=== PATIENT | female | born 1980 | race Caucasian/White ===

== ENCOUNTER 2020-08-31 13:58 | Emergency (ER) | payer SELFPAY ==
[2020-08-31] VITALS (7 sets, daily range): BP systolic 102–130; BP diastolic 75–82; PULSE 64–83; RESP 16–18; TEMP 37.1; O2SAT 96–98; BMI 26.0
--- NOTE | 2020-08-31 14:31 | ECG_ITS ---
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 Measurements Intervals [place] Rate: 77 P: 39 MO: 173 QRS: 44 QRSD: 85 T: 23 QT: 366 QTc: 416 Interpretive Statements SINUS RHYTHM WITH OCCASIONAL VENTRICULAR PREMATURE COMPLEXES No previous ECG available for comparison Electronically Signed On 08-31-2020 17:57:47 FLOOR WINDER by Rinku Hoff M.D. [id number]
--- NOTE | 2020-08-31 14:31 | XR_ITS ---
WS: [id number] Portable AP upright chest, 08/31/2020 Clinical Data: sob Comparison: None. Findings: No nodules, masses or effusions are seen. The heart is normal. The pulmonary vascularity is not increased. No pneumonia or pneumothorax is seen. Monitor leads are on the chest wall. XR/XR chest 1V portable [id number] Impression: Negative chest.
--- NOTE | 2020-08-31 14:32 | ED_ITS ---
HPI - SOB/Dyspnea General: Chief Complaint: Shortness of Breath/Dyspnea Stated Complaint: DIFF BREATHING X 5 DAYS Time Seen by Provider: 08/31/20 14:10 History of Present Illness: HPI Narrative: Patient is a 40-year-old female comes to the ED with shortness of breath, sinus pain and congestion over the past 5 days. Denies any chest pain but does describe some shortness of breath and chest tightness especially when she gets up and moves around. She endorses having a mild cough that is due to sinus and nasal drainage. Associated symptoms: Deny abdominal pain, chest pain, fever(s), nausea, ort hopnea, palpitations or vomiting Review of Systems Const: Denies: fever(s), chills or fatigue Eyes: Denies: change in vision or eye discomfort ENMT: Reports: nasal discharge, nasal congestion and sinus pain (frontal sinus pain); Denies: throat pain or odynophagia Card: Denies: chest pain, palpitations, edema, swelling of feet/ankles, dyspnea on exertion or orthopnea Resp: Reports: dyspnea; Denies: productive cough or non-productive cough GI: Denies: abdominal pain, nausea, vomiting, diarrhea, constipation or hematochezia : Denies: flank pain, dysuria or hematuria Musc: Denies: neck pain, back pain or extremity swelling Skin/Breast: Denies: rash or new lesions Neuro: Denies: headache(s), numbness in extremities or weakness in extremities Physical Exam Const: COMMON NORMALS: no acute distress, patient oriented x3 and alert HENMT: COMMON NORMALS: normocephalic HEAD & SCALP: normocephalic FACE & SINUS: sinus tenderness frontal (bilateral) and maxillary (bilateral) MOUTH: Normal oral and palatal mucosa present THROAT: posterior oropharynx normal and uvula midline Eye: COMMON NORMALS: Equal, round and reactive pupils present PUPIL: Yes Equal, round and reactive pupils present Neck/C-Spine: COMMON NORMALS: supple GENERAL: Yes normal visual inspection Resp: COMMON NORMALS: normal respiratory effort, No retractions, No use of accessory muscles and clear to auscultation bilaterally EFFORT & INSPECTION: Yes able to speak in complete sentences, No tachypneic, No respiratory distress and No labored AUSCULTATION: clear to auscultation bilaterally Cardio: COMMON NORMALS: regular rate, regular rhythm, S1 normal heart sound present, S2 normal heart sound present, No gallops present (Cardio), No clicks present (Cardio), No murmurs present (Cardio) and Peripheral pulses 2+ throughout RATE: regular rate RHYTHM: regular rhythm HEART SOUNDS: S1 normal heart sound present and S2 normal heart sound present PERIPHERAL PU LSES: Peripheral pulses 2+ throughout GI: COMMON NORMALS: Normal to inspection, nondistended, normoactive bowel sounds present, Soft to palpation, non-tender and no masses PALPATION: Yes Soft to palpation : COMMON NORMALS: Yes no CVA tenderness BLADDER/KIDNEY EXAM: Yes no CVA tenderness Back/Pelvis: COMMON NORMALS: no CVA tenderness Extremity: COMMON NORMALS: normal to inspection and no pedal edema Neuro: COMMON NORMALS: patient oriented x3 and moves all extremities SENSORIUM/ORIENTATION: Yes alert Skin: GENERAL SKIN EXAM: dry skin Course Vital Signs: Vital signs: Vital Signs Temperature 98.7 F 08/31/20 16:34 Pulse Rate 79 08/31/20 16:34 Respiratory Rate 18 08/31/20 16:34 Blood Pressure 102/75 08/31/20 16:34 Pulse Oximetry 96 08/31/20 16:34 MDM - SOB/Dyspnea MDM Narrative: Medical decision making narrative: Patient is a 40-year-old female comes to the ED with sinus pain and shortness of breath. Symptoms started about 5 days ago. Physical exam shows some frontal and maxillary sinus tenderness. Lungs were clear to auscultation bilaterally. CBC and CMP were unremarkable. D-dimer 0.49 which is in normal range. hCG negative troponin negative and EKG showed normal sinus rhythm with no ST segment elevation or depression seen. Chest x-ray showed no acute findings. Patient was given a DuoNeb breathing treatment in the ED. She was also given a dose of Solu-Medrol while here in the ED as well. Patient was diagnosed with sinusitis and discharged with a prescription for Augmentin and Medrol Dosepak. Patient was told to follow-up with PCP in 7 to 10 days for reevaluation. Return to ED precautions given. Patient understood and agreed with plan. Lab Data: Attestation: I reviewed the patient's lab results. Labs: Lab Results 08/31/20 08/31/20 08/31/20 Range/Units 14:35 14:35 14:35 WBC 6.3 (4.0-10.0) 10^3/ uL RBC 4.11 (4.1-5.3) 10^6/u L Hgb 12.4 (11.5-15.3) g/dL Hct 37.4 (37.0-47.0) % MCV 91.0 (81-99) fL MCH 30.2 (28.0-34.0) pg MCHC 33.2 (30.0-36.0) g/dL RDW 13.0 (12.1-15.1) % Plt Count 325 (130-400) 10^3/c mm MPV 10.0 (7.4-10.4) fL Neut % (Auto) 51.0 % Lymph % (Auto) 41.6 % Payne % (Auto) 5.3 % Eos % (Auto) 1.6 % Baso % (Auto) 0.3 % Neut # (Auto) 3.20 (1.8-7.7) 10^3/u L Lymph # (Auto) 2.6 (0.8-4.8) 10^3/u L [place] # (Auto) 0.3 (0.2-0.9) 10^3/u L Eos # (Auto) 0.1 (0.0-0.8) 10^3/u L Baso # (Auto) 0.0 (0.0-0.1) 10^3/u L Nucleated RBC % (a uto) 0 % Nucleated RBCs # 0.0 /100WBC D-Dimer 0.49 (0-0.59) ug/mIFE U Sodium 138 (136-145) mmol/L Potassium 3.9 (3.5-5.1) mmol/L Chloride 104 (98-107) mmol/L Carbon Dioxide 23 (22-29) mmol/L Anion Gap 14.9 (5-19) BUN 15 (6-20) mg/dL Creatinine 0.4 L (0.5-0.9) mg/dL GFR Calculation 178.6 H (90-130) mL/min Glucose 115 (65-115) mg/dL Calculated Osmolal ity 288 (285-295) mOsm/k g Calcium 9.0 (8.5-10.5) mg/dL Total Bilirubin 0.2 (0.15-1.2) mg/dL AST 28 (0-32) U/L ALT 53 H (0-33) U/L Alkaline Phosphata se 89 (35-105) IU/L Troponin T Baselin e (0-10) ng/L Total Protein 6.8 (6.6-8.7) g/dL Albumin 4.1 (3.5-5.2) g/dL Globulin 2.7 (1.3-4.6) g/dL HCG, Qual (Negative) 08/31/20 08/31/20 Range/Units 14:35 14:35 WBC (4.0-10.0) 10^3/ uL RBC (4.1-5.3) 10^6/u L Hgb (11.5-15.3) g/dL Hct (37.0-47.0) % MCV (81-99) fL MCH (28.0-34.0) pg MCHC (30.0-36.0) g/dL RDW (12.1-15.1) % Plt Count (130-400) 10^3/c mm MPV (7.4-10.4) fL Neut % (Auto) % Lymph % (Auto) % [place] % (Auto) % Eos % (Auto) % Baso % (Auto) % Neut # (Auto) (1.8-7.7) 10^3/u L Lymph # (Auto) (0.8-4.8) 10^3/u L [place] # (Auto) (0.2-0.9) 10^3/u L Eos # (Auto) (0.0-0.8) 10^3/u L Baso # (Auto) (0.0-0.1) 10^3/u L Nucleated RBC % (a uto) % Nucleated RBCs # /100WBC D-Dimer (0-0.59) ug/mIFE U Sodium (136-145) mmol/L Potassium (3.5-5.1) mmol/L Chloride (98-107) mmol/L Carbon Dioxide (22-29) mmol/L Anion Gap (5-19) BUN (6-20) mg/dL Creatinine (0.5-0.9) mg/dL GFR Calculation (90-130) mL/min Glucose (65-115) mg/dL Calculated Osmolal ity (285-295) mOsm/k g Calcium (8.5-10.5) mg/dL Total Bilirubin (0.15-1.2) mg/dL AST (0-32) U/L ALT (0-33) U/L Alkaline Phosphata se (35-105) IU/L Troponin T Baselin e 6 (0-10) ng/L Total Protein (6.6-8.7) g/dL Albumin (3.5-5.2) g/dL Globulin (1.3-4.6) g/dL HCG, Qual Negative (Negative) Imaging Data^: CXR: Attestation: I personally reviewed and interpreted this imaging study as follows: Radiologist's impression: [employer] [address] XRay Report Signed Patient: Francie Pacheco Unit #: [id number] : 1980 Age/Sex: 40 / F ADM Date: 08/31/20 Loc: ER Room/Bed: Attending Dr: Ordering Provider/Ordering MD: Erwin Fishman Date of Service: 08/31/20 Procedure(s): XR chest 1V portable [id number] Accession Number(s): [id number] Report Number: [id number] WS: [id number] Portable AP upright chest, 08/31/2020 Clinical Data: sob Comparison: None. Findings: No nodules, masses or effusions are seen. The heart is normal. The pulmonary vascularity is not increased. No pneumonia or pneumothorax is seen. Monitor leads are on the chest wall. XR/XR chest 1V portable [id number] Impression: Negative chest. Dictated By: Luh Ramirez MD Signed By: Luh Ramirez MD Signed Date/Time: 08/31/201440 DD/ 40 EKG Data^: EKG 1: Attestation: I personally reviewed and interpreted this EKG as follows: EKG Interpretation Date: 08/31/20 Interpretation: Normal sinus rhythm, 77 bpm, no ST segment elevation or depression seen. Discharge Plan Discharge Patient Disposition: Home Clinical Impression: Sinusitis Qualifiers: Sinusitis location: frontal Chronicity: acute Recurrence: non-recurrent Qualified Code(s): J01.10 - Acute frontal sinusitis, unspecified Condition: Stable Prescriptions: New Augmentin 500-125 mg tablet 1 tab PO BID 7 Days Qty: 14 RF: 0 Medrol (Hola) 4 mg tablets,dose pack See Rx Instructions .ROUTE .COMPLEX Qty: 21 RF: 0 No Action No Known Home Medications RF: 0 Discharge Orders: Discharge ED (Routine); Ordered 08/31/20 Ordered By: Erwin Fishman Referrals: Amarjit Price MD [Primary Care Provider] - Discharge Diet: Regular Discharge Activity: Increase activity as tolerated Patient Instructions: Sinusitis (ED) Activity Restrictions/Additional Instructions: Follow-up with medical provider as directed in 7 to 10 days for reevaluation. Take medications as prescribed. Return to the ER or your medical provider if condition worsens. Please read and understand discharge instructions. If any questions, please ask. Coding Level of Care Code ED Retail Selling Floor Leader for Freida Fwmarycarmen Exam Comprehensive
[2020-08-31 14:45] LABS: Basophils % 0.3 %; Eosinophils # 0.1 10^3/uL (0.0-0.8); Eosinophils % 1.6 %; Hematocrit 37.4 % (37.0-47.0); Hemoglobin 12.4 g/dL (11.5-15.3); Lymphocytes # 2.6 10^3/uL (0.8-4.8); Lymphocytes % 41.6 %; Mean Corpuscular HGB Conc 33.2 g/dL (30.0-36.0); Mean Corpuscular Hemoglobin 30.2 pg (28.0-34.0); Monocytes # 0.3 10^3/uL (0.2-0.9); Monocytes % 5.3 %; Nucleated Red Blood Cells % 0 %; Platelet Count 325 10^3/cmm (130-400); Red Blood Count 4.11 10^6/uL (4.1-5.3); White Blood Count 6.3 10^3/uL (4.0-10.0)
[2020-08-31 15:05] LABS: D Dimer 0.49 ug/mIFEU (0-0.59)
[2020-08-31 15:35] LABS: Troponin(5th) Baseline 6 ng/L (0-10)
[2020-08-31 15:36] LABS: Alanine Aminotransferase 53 U/L (0-33); Albumin Level 4.1 g/dL (3.5-5.2); Alkaline Phosphatase 89 IU/L (35-105); Anion Gap 14.9 (5-19); Aspartate Amino Transferase 28 U/L (0-32); Blood Urea Nitrogen 15 mg/dL (6-20); Carbon Dioxide 23 mmol/L (22-29); Chloride 104 mmol/L (98-107); Globulin 2.7 g/dL (1.3-4.6); Glomerular Filtration Rate 178.6 mL/min (90-130); Glucose 115 mg/dL (65-115); Osmolality Calculated 288 mOsm/kg (285-295); Potassium 3.9 mmol/L (3.5-5.1); Sodium 138 mmol/L (136-145); Total Bilirubin 0.2 mg/dL (0.15-1.2); Total Protein 6.8 g/dL (6.6-8.7)
[2020-08-31] MEDS: sodium chloride 0.9% 500 ML 999 ML IV (15:44)
[2020-08-31] MEDS: ipratropium-albuterol 3 mL Neb INHALATION (15:53)
--- NOTE | 2020-08-31 16:26 | PC.NURSE ---
EKG done at 1626 and shown to ER doctor
--- NOTE | 2020-08-31 16:31 | ECG_ITS ---
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 Measurements Intervals [place] Rate: 68 P: 50 [place]: 183 QRS: 41 QRSD: 90 T: 44 QT: 388 QTc: 414 Interpretive Statements SINUS RHYTHM WITH OCCASIONAL VENTRICULAR PREMATURE COMPLEXES Compared to ECG 08/31/2020 14:15:40 No significant changes Electronically Signed On 08-31-2020 18:12:15 DAYCARE WORKER by Rinku Hoff M.D. [id number]
[2020-08-31 20:52] LABS: HCG, Serum Qual Negative (Negative)
== END 2020-08-31 16:38 | disposition home or self-care (01) ==
PROVIDERS: Emergency Provider Physician Assistant; PCP Family Medicine
DX: J01.10 Acute frontal sinusitis, unspecified (principal)
CPT/HCPCS: 12345; 71045; 80053; 84484; 84703; 85025; 85378; 93005; 94640; 96374; 99283; J2930; J7040

== ENCOUNTER 2024-06-27 11:48 | Emergency (ER) | payer SELFPAY ==
[2024-06-27 12:12] VITALS: BP 127/74; PULSE 82; RESP 17; TEMP 36.7; O2SAT 99
--- NOTE | 2024-06-27 13:41 | CTR_ITS ---
PROCEDURE INFORMATION: Exam: CT Abdomen And Pelvis Without Contrast Exam date and time: 06/27/2024 2:28 PM Age: 44 years old Clinical indication: Abdominal pain; Generalized; Additional info: Flank pain TECHNIQUE: Imaging protocol: Computed tomography of the abdomen and pelvis without contrast. Radiation optimization: All CT scans at this facility use at least one of these dose optimization techniques: automated exposure control; mA and/or kV adjustment per patient size (includes targeted exams where dose is matched to clinical indication); or iterative reconstruction. COMPARISON: CR XR chest 1V portable [id number] 08/31/2020 2:32 PM RADIATION DOSE METRICS: Total DLP (mGy-cm): 333.36 FINDINGS: Lungs: Minimal right basilar atelectasis. Liver: Normal. No mass. Gallbladder and biliary ducts: The gallbladder is unremarkable. Pancreas: Normal. No ductal dilation. Spleen: Subcentimeter calcifications in the spleen likely representing granulomas. Subcentimeter splenule visualized in the left upper quadrant. Adrenal glands: Normal. No mass. Kidneys and ureters: No evidence of hydronephrosis or nephrolithiasis bilaterally. No obstructing ureteral calculus. The urinary bladder is unremarkable. Stomach and bowel: There is moderate gastric wall thickening with scattered small bowel loops displaying minimal wall thickening such as seen on series 3, image 82. No evidence of diverticulosis or acute diverticulitis. Appendix: The appendix is not definitively identified. No secondary signs to suggest acute appendicitis. Intraperitoneal space: No intraperitoneal free air or fluid. Vasculature: Mild aortoiliac atherosclerosis. Lymph nodes: Unremarkable. No enlarged lymph nodes. Urinary bladder: See Kidneys and ureters finding. Reproductive: Status post hysterectomy. Bones/joints: Unremarkable. No acute fracture. Soft tissues: Small fat containing umbilical hernia. CT/CT kidney stone [id number] IMPRESSION: 1. Findings suggesting mild gastroenteritis. 2. No evidence of nephrolithiasis or hydronephrosis. No obstructing ureteral calculus. 3. No evidence of acute appendicitis or acute diverticulitis.
[2024-06-27 13:42] LABS: Basophils % 0.4 %; Eosinophils # 0.2 10^3/uL (0.0-0.8); Eosinophils % 2.2 %; Hematocrit 39.8 % (36-47); Lymphocytes # 2.8 10^3/uL (0.8-4.8); Lymphocytes % 34.6 %; Mean Corpuscular HGB Conc 33.2 g/dL (30-55); Mean Corpuscular Hemoglobin 30.6 pg (27-33); Mean Corpuscular Volume 92.3 fl (85-98); Mean Platelet Volume 9.1 fL (7.4-10.4); Monocytes # 0.5 10^3/uL (0.2-0.9); Monocytes % 5.8 %; Neutrophils # 4.62 10^3/uL (1.8-7.7); Neutrophils % 56.8 %; Nucleated Red Blood Cells % 0 %; Platelet Count 357 10^3/cmm (157-399); Red Blood Count 4.31 10^6/uL (3.85-5.65); Red Cell Distribution Width 13.2 % (12.1-15.1); White Blood Count 8.14 10^3/uL (3.29-11.43)
--- NOTE | 2024-06-27 13:47 | ED_ITS ---
HPI - Female Genitourinary 2 General: Chief complaint: Urogenital-Female Stated complaint: severe pain back pain Time Seen by Provider: 06/27/24 13:35 Source: patient Mode of arrival: ambulatory Limitations: no limitations History of Present Illness: 44-year-old female states been having bi lateral flank and low back pain for the last 5 days states pains been sharp in nature worse with movement and palpation has had some difficulty urinating she denies any fevers denies any diarrhea denies any vomiting. Associated symptoms: Reports nausea; Deny abdominal pain or headache(s) Related Data Previous Rx's Medication Instructions Recorded hydrocodone 5 mg-acetaminophen 325 1 tab PO Q6H PRN pain #14 tabs 06/27/24 mg tablet methocarbamol 750 mg tablet 750 mg PO Q6H PRN spasms #20 tabs 06/27/24 naproxen 500 mg tablet (Naprosyn) 500 mg PO BID PRN pain #20 tabs 06/27/24 Allergies Allergy/AdvReac Type Severity Reaction Status Date / Time No Known Allergies Allergy Verified 08/31/20 14:14 Review of Systems 2 Const: Denies: fever(s), chills, body aches or change in appetite ENMT: Denies: throat pain or dental pain Card: Denies: chest pain Resp: Denies: dyspnea GI: Reports: nausea; Denies: abdominal pain, vomiting or diarrhea : Reports: flank pain and difficulty voiding Musc: Reports: back pain; Denies: neck pain Skin/Breast: Denies: rash Neuro: Denies: headache(s) Physical Exam 2 Const: COMMON NORMALS: no acute distress, patient oriented x3 and healthy appearing HENMT: COMMON NORMALS: normocephalic and atraumatic HEAD & SCALP: n ormocephalic and atraumatic Eye: COMMON NORMALS: conjunctivae normal CONJUNCTIVA: Yes conjunctivae normal Neck/C-Spine: COMMON NORMALS: full ROM and supple Chest: COMMONS NORMALS: normal inspection of the chest Resp: COMMON NORMALS: normal respiratory effort Cardio: COMMON NORMALS: regular rate, regular rhythm and No murmurs present (Cardio) RATE: regular rate RHYTHM: regular rhythm GI: COMMON NORMALS: Normal to inspection, nondistended, normoactive bowel sounds present, Soft to palpation, non-tender and no masses PALPATION: Yes Soft to palpation Back/Pelvis: OTHER: Bilateral low back tenderness Extremity: COMMON NORMALS: normal to inspection and full ROM Neuro: COMMON NORMALS: patient oriented x3, moves all extremities and no focal motor deficits Psych: COMMON NORMALS: mental status grossly normal, Normal thought process present and cooperative THOUGHT PROCESS: Normal thought process present Skin: COMMON NORMALS: no rashes or lesions noted and no wounds GENERAL SKIN EXAM: no rashes or lesions noted Course 2 Vital Signs: Vital signs: Vital Signs Temperature 98.1 F 06/27/24 12:12 Pulse Rate 73 06/27/24 16:02 Respiratory Rate 18 06/27/24 14:20 Blood Pressure 111/82 06/27/24 16:02 Pulse Oximetry 99 06/27/24 16:02 Oxygen Delivery Me thod Room Air 06/27/24 16:02 MDM - Female Medical Decision Making Patient presents with back pain is likely muscular in nature CT blood work urinalysis here are all normal pain has improved she has no signs of epidural abscess or cauda equina we will place her on pain meds she is follow-up with PCP return if worsening she understands agrees to plan. Medical Records I reviewed the patient's medical records. Lab Data I reviewed the patient's lab results. 06/27/24 13:30 06/27/24 13:30 Radiology Impressions Abdomen/Pelvis CT 06/27/24 13:41 IMPRESSION: 1. Findings suggesting mild gastroenteritis. 2. No evidence of nephrolithiasis or hydronephrosis. No obstructing ureteral calculus. 3. No evidence of acute appendicitis or acute diverticulitis. Laboratory Results WBC 8.14 10^3/uL (3.29-11.43) 06/27/24 13:30 RBC 4.31 10^6/uL (3.85-5.65) 06/27/24 13:30 Hgb 13.20 g/dL (11.27-16.99) 06/27/24 13:30 Hct 39.8 % (36-47) 06/27/24 13:30 MCV 92.3 fl (85-98) 06/27/24 13:30 MCH 30.6 pg (27-33) 06/27/24 13:30 MCHC 33.2 g/dL (30-55) 06/27/24 13:30 RDW 13.2 % (12.1-15.1) 06/27/24 13:30 Plt Count 357 10^3/cmm (157-399) 06/27/24 13:30 MPV 9.1 fL (7.4-10.4) 06/27/24 13:30 Neut % (Auto) 56.8 % 06/27/24 13:30 Lymph % (Auto) 34.6 % 06/27/24 13:30 [place] % (Auto) 5.8 % 06/27/24 13:30 Eos % (Auto) 2.2 % 06/27/24 13:30 Baso % (Auto) 0.4 % 06/27/24 13:30 Neut # (Auto) 4.62 10^3/uL (1.8-7.7) 06/27/24 13:30 Lymph # (Auto) 2.8 10^3/uL (0.8-4.8) 06/27/24 13:30 [place] # (Auto) 0.5 10^3/uL (0.2-0.9) 06/27/24 13:30 Eos # (Auto) 0.2 10^3/uL (0.0-0.8) 06/27/24 13:30 Baso # (Auto) 0.0 10^3/uL (0.0-0.1) 06/27/24 13:30 Nucleated RBC % (auto) 0 % 06/27/24 13:30 Nucleated RBCs # 0.0 /100WBC 06/27/24 13:30 Sodium 140 mmol/L (136-145) 06/27/24 13:30 Potassium 4.1 mmol/L (3.5-5.1) 06/27/24 13:30 Chloride 105 mmol/L (98-107) 06/27/24 13:30 Carbon Dioxide 25 mmol/L (22-29) 06/27/24 13:30 Anion Gap 14.1 (5-19) 06/27/24 13:30 BUN 11 mg/dL (6-20) 06/27/24 13:30 Creatinine 0.5 mg/dL (0.5-0.9) 06/27/24 13:30 GFR Calculation 135.3 mL/min (90-130) H 06/27/24 13:30 Glucose 76 mg/dL (65-115) 06/27/24 13:30 Calculated Osmolality 288 mOsm/kg (285-295) 06/27/24 13:30 Calcium 9.3 mg/dL (8.5-10.5) 06/27/24 13:30 Total Bilirubin 0.2 mg/dL (0.15-1.2) 06/27/24 13:30 AST 19 U/L (0-32) 06/27/24 13:30 ALT 22 U/L (0-33) 06/27/24 13:30 Alkaline Phosphatase 78 U/L (35-105) 06/27/24 13:30 Total Protein 7.1 g/dL (6.6-8.7) 06/27/24 13:30 Albumin 4.4 g/dL (3.5-5.2) 06/27/24 13:30 Globulin 2.7 g/dL (1.3-4.6) 06/27/24 13:30 Lipase 23 U/L (13-60) 06/27/24 13:30 Urine Color Yellow (Yellow) 06/27/24 14:16 Urine Appearance Clear (CLEAR) 06/27/24 14:16 Urine pH 5.5 (5-7) 06/27/24 14:16 Ur Specific [place] 1.006 (1.005-1.030) 06/27/24 14:16 Urine Protein Negative (Negative) 06/27/24 14:16 Urine Glucose (UA) Negative (Normal) 06/27/24 14:16 Urine Ketones Negative (Negative) 06/27/24 14:16 Urine Blood Negative (Negative) 06/27/24 14:16 Urine Nitrate Negative (Negative) 06/27/24 14:16 Urine Bilirubin Negative (Negative) 06/27/24 14:16 Urine Urobilinogen 0.2 mg/dL (Negative) 06/27/24 14:16 Ur Leukocyte Esterase Negative (Negative) 06/27/24 14:16 Urine RBC 0-2 /hpf (0-2) 06/27/24 14:16 Urine WBC 0-5 /hpf (0-5) 06/27/24 14:16 Ur Squamous Epith Cells 0-5 /hpf (0-5) 06/27/24 14:16 Amorphous Sediment Not Reportable 06/27/24 14:16 Urine Bacteria None seen /hpf (NONE) 06/27/24 14:16 Hyaline Casts 0-4 /lpf H 06/27/24 14:16 All radiology interpretation(s) finalized by discharge Discharge Plan Discharge Patient Disposition: Home Clinical Impression: Low back pain Condition: Stable Prescriptions: New hydrocodone-acetaminophen 5-325 mg tablet 1 tab PO Q6H PRN (Reason: pain) Qty: 14 0RF methocarbamol 750 mg tablet 750 mg PO Q6H PRN (Reason: spasms) Qty: 20 0RF naproxen [Naprosyn] 500 mg tablet 500 mg PO BID PRN (Reason: pain) Qty: 20 0RF Discharge Orders: Discharge ED (Routine); Ordered 06/27/24 Ordered By: Osvaldo Arauz Referrals: Amarjit Price MD [Primary Care Provider] - Discharge Diet: Advance as tolerated Discharge Activity: Resume usual activity Patient Instructions: Back Pain (ED) Coding Level of Care Code ED Associate Professor Of Theology for Freida Kaplan
[2024-06-27 14:05] LABS: Alanine Aminotransferase 22 U/L (0-33); Albumin Level 4.4 g/dL (3.5-5.2); Alkaline Phosphatase 78 U/L (35-105); Anion Gap 14.1 (5-19); Aspartate Amino Transferase 19 U/L (0-32); Blood Urea Nitrogen 11 mg/dL (6-20); Calcium 9.3 mg/dL (8.5-10.5); Carbon Dioxide 25 mmol/L (22-29); Chloride 105 mmol/L (98-107); Globulin 2.7 g/dL (1.3-4.6); Glomerular Filtration Rate 135.3 mL/min (90-130); Glucose 76 mg/dL (65-115); Lipase 23 U/L (13-60); Osmolality Calculated 288 mOsm/kg (285-295); Potassium 4.1 mmol/L (3.5-5.1); Sodium 140 mmol/L (136-145); Total Bilirubin 0.2 mg/dL (0.15-1.2); Total Protein 7.1 g/dL (6.6-8.7)
[2024-06-27 14:20] VITALS: RESP 18
[2024-06-27] MEDS: ondansetron 2 mg/ML SDV 2 mL 4 MG IVP (14:20)
[2024-06-27] MEDS: HYDROmorphone 1 mg/mL INJ 1 mL IVP (14:20)
[2024-06-27 14:26] LABS: Bilirubin Urine Negative (Negative); Blood Urine Negative (Negative); Glucose Urine UA Negative (Normal); Ketones Urine Negative (Negative); Leukocyte Esterase Urine Negative (Negative); Nitrate Urine Negative (Negative); Protein Urine Negative (Negative); Specific Gravity, Urine 1.006 (1.005-1.030); Urine Appearance Clear (CLEAR); Urine Color Yellow (Yellow); Urobilinogen Urine 0.2 mg/dL (Negative); pH Urine 5.5 (5-7)
[2024-06-27 14:28] LABS: Add Urine Microscopic? YES; Bacteria Urine None Seen /hpf; Hyaline Casts Urine 0-4 /lpf; RBC Urine 0-2 /hpf (0-2); Squamous Epithelial Cell Urine 0-5 /hpf (0-5); WBC Urine 0-5 /hpf (0-5)
[2024-06-27] MEDS: ketorolac 30 mg/mL INJ 15 MG IVP (14:44)
[2024-06-27 14:45] VITALS: BP 132/89; PULSE 84; O2SAT 97
[2024-06-27] MEDS: methocarbamol 750 mg Tablet 1500 MG PO (16:00)
[2024-06-27 16:02] VITALS: BP 111/82; PULSE 73; O2SAT 99
[2024-06-27 16:21] VITALS: BP 111/82; PULSE 66; O2SAT 95
== END 2024-06-27 16:23 | disposition home or self-care (01) ==
PROVIDERS: Emergency Medicine; Emergency Provider Emergency Medicine; PCP Family Medicine
DX: M54.50 Low back pain, unspecified (principal)
CPT/HCPCS: 74176; 80053; 81001; 83690; 85025; 96374; 96375; 99285; J1171; J1885; J2405

== ENCOUNTER 2024-07-03 19:54 | Emergency (ER) | payer SELFPAY ==
[2024-07-03 20:01] VITALS: BP 111/72; PULSE 81; RESP 17; TEMP 36.4; O2SAT 97; BMI 23.8
--- NOTE | 2024-07-03 20:16 | ED_ITS ---
HPI - Abdominal Pain 2 General: Chief Complaint: Abdominal Pain Stated Complaint: Pelvic, lower back and thigh pain Time Seen by Provider: 07/03/24 20:11 History of Present Illness: 44-year-old female comes in today for co mplaints of low back pain radiating into her right hip and down her right leg. Patient was seen over a week ago on the and was treated at that time for musculoskeletal pain. Patient continues to have severe pain. Patient appears nontoxic. Patient has used naproxen, methocarbamol, and hydrocodone for her pain. Patient reports only using the hydrocodone 2 or 3 times. Patient is use more the methocarbamol and occasional amounts of the naproxen. Patient is also seeing a chiropractor with minimal relief. Patient appears nontoxic. Patient appears in moderate pain. Related Data Previous Rx's Medication Instructions Recorded hydrocodone 5 mg-acetaminophen 325 1 tab PO Q6H PRN pain #14 tabs 06/27/24 mg tablet methocarbamol 750 mg tablet 750 mg PO Q6H PRN spasms #20 tabs 06/27/24 naproxen 500 mg tablet (Naprosyn) 500 mg PO BID PRN pain #20 tabs 06/27/24 prednisone 20 mg tablet 20 mg PO DAILY 7 days #7 tabs 07/03/24 Allergies Allergy/AdvReac Type Severity Reaction Status Date / Time No Known Allergies Allergy Verified 07/03/24 20:01 Review of Systems 2 General: Reports: 10 or more systems reviewed and unremarkable except in HPI and below Musc: Reports: back pain Physical Exam 2 Const: COMMON NORMALS: alert HENMT: COMMON NORMALS: normocephalic HEAD & SCALP: normocephalic Neck/C-Spine: COMMON NORMALS: full ROM Resp: COMMON NORMALS: normal respiratory effort and clear to auscultation bilaterally AUSCULTATION: clear to auscultation bilaterally Cardio: COMMON NORMALS: regular rate RATE: regular rate Back/Pelvis: LUMBAR SPINE/LOWER BACK: Yes lumbar spinal tenderness Lumbar spinal tenderness location: L4 and L5 Extremity: COMMON NORMALS: full ROM Neuro: SENSORIUM/ORIENTATION: Yes alert Skin: COMMON NORMALS: turgor normal GENERAL SKIN EXAM: turgor normal Course 2 Vital Signs: Vital signs: Vital Signs Temperature 97.5 F L 07/03/24 20:01 Pulse Rate 63 07/03/24 20:49 Respiratory Rate 16 07/03/24 20:49 Blood Pressure 132/73 07/03/24 20:49 Pulse Oximetry 96 07/03/24 20:49 Oxygen Delivery Me thod Room Air 07/03/24 20:49 MDM - Abdominal Pain Medical Decision Making 44-year-old female comes in today for complaints of lower back pain radiating down her right hip and right inguinal area. Patient appears nontoxic. Patient appears in moderate pain. Differential diagnosis includes lumbar radiculopathy, intervertebral disc disease, facet arthritis, vertebral fracture, tendinitis. Laboratory values were normal. CT of the lumbar spine was normal. Patient is very tender in the right sacroiliac joint. The pelvic patient has some sacroiliac dysfunction. Patient was given Toradol, dexamethasone, and orphenadrine with minimal relief of pain. Patient then was given 1/2 mg of hydromorphone IV. Patient was instructed to continue with her medication she has prescribed at home and to follow-up with primary care in 3 days. No signs of severe illness or injury was noted. Patient stable and discharged home. Lab Data 07/03/24 20:40 07/03/24 20:40 Labs/Radiology: Radiology Impressions Lumbar Spine CT 07/03/24 20:21 IMPRESSION: No acute findings. Laboratory Results WBC 7.54 10^3/uL (3.29-11.43) 07/03/24 20:40 RBC 4.16 10^6/uL (3.85-5.65) 07/03/24 20:40 Hgb 12.70 g/dL (11.27-16.99) 07/03/24 20:40 Hct 38.4 % (36-47) 07/03/24 20:40 MCV 92.3 fl (85-98) 07/03/24 20:40 MCH 30.5 pg (27-33) 07/03/24 20:40 MCHC 33.1 g/dL (30-55) 07/03/24 20:40 RDW 13.0 % (12.1-15.1) 07/03/24 20:40 Plt Count 352 10^3/cmm (157-399) 07/03/24 20:40 MPV 9.1 fL (7.4-10.4) 07/03/24 20:40 Neut % (Auto) 48.0 % 07/03/24 20:40 Lymph % (Auto) 43.9 % 07/03/24 20:40 [place] % (Auto) 4.9 % 07/03/24 20:40 Eos % (Auto) 2.8 % 07/03/24 20:40 Baso % (Auto) 0.1 % 07/03/24 20:40 Neut # (Auto) 3.62 10^3/uL (1.8-7.7) 07/03/24 20:40 Lymph # (Auto) 3.3 10^3/uL (0.8-4.8) 07/03/24 20:40 [place] # (Auto) 0.4 10^3/uL (0.2-0.9) 07/03/24 20:40 Eos # (Auto) 0.2 10^3/uL (0.0-0.8) 07/03/24 20:40 Baso # (Auto) 0.0 10^3/uL (0.0-0.1) 07/03/24 20:40 Nucleated RBC % (auto) 0 % 07/03/24 20:40 Nucleated RBCs # 0.0 /100WBC 07/03/24 20:40 ESR 10 mm/hr (0-15) 07/03/24 20:40 Sodium 138 mmol/L (136-145) 07/03/24 20:40 Potassium 4.4 mmol/L (3.5-5.1) 07/03/24 20:40 Chloride 104 mmol/L (98-107) 07/03/24 20:40 Carbon Dioxide 24 mmol/L (22-29) 07/03/24 20:40 Anion Gap 14.4 (5-19) 07/03/24 20:40 BUN 15 mg/dL (6-20) 07/03/24 20:40 Creatinine 0.5 mg/dL (0.5-0.9) 07/03/24 20:40 GFR Calculation 135.3 mL/min (90-130) H 07/03/24 20:40 Glucose 93 mg/dL (65-115) 07/03/24 20:40 Calculated Osmolality 287 mOsm/kg (285-295) 07/03/24 20:40 Calcium 9.3 mg/dL (8.5-10.5) 07/03/24 20:40 Total Bilirubin 0.2 mg/dL (0.15-1.2) 07/03/24 20:40 AST 19 U/L (0-32) 07/03/24 20:40 ALT 22 U/L (0-33) 07/03/24 20:40 Alkaline Phosphatase 77 U/L (35-105) 07/03/24 20:40 C-Reactive Protein 3.0 mg/L (0.0-4.9) 07/03/24 20:40 Total Protein 7.0 g/dL (6.6-8.7) 07/03/24 20:40 Albumin 4.3 g/dL (3.5-5.2) 07/03/24 20:40 Globulin 2.7 g/dL (1.3-4.6) 07/03/24 20:40 Lipase 29 U/L (13-60) 07/03/24 20:40 Urine Color Yellow (Yellow) 07/03/24 21:20 Urine Appearance Clear (CLEAR) 07/03/24 21:20 Urine pH 6.5 (5-7) 07/03/24 21:20 Ur Specific [place] 1.012 (1.005-1.030) 07/03/24 21:20 Urine Protein Negative (Negative) 07/03/24 21:20 Urine Glucose (UA) Negative (Normal) 07/03/24 21:20 Urine Ketones Negative (Negative) 07/03/24 21:20 Urine Blood Negative (Negative) 07/03/24 21:20 Urine Nitrate Negative (Negative) 07/03/24 21:20 Urine Bilirubin Negative (Negative) 07/03/24 21:20 Urine Urobilinogen 0.2 mg/dL (Negative) 07/03/24 21:20 Ur Leukocyte Esterase Trace (Negative) A 07/03/24 21:20 Urine RBC 0-2 /hpf (0-2) 07/03/24 21:20 Urine WBC 6-10 /hpf (0-5) 07/03/24 21:20 Ur Squamous Epith Cells 0-5 /hpf (0-5) 07/03/24 21:20 Amorphous Sediment Not Reportable 07/03/24 21:20 Urine Bacteria None seen /hpf (NONE) 07/03/24 21:20 Hyaline Casts 0-4 /lpf H 07/03/24 21:20 All radiology interpretation(s) finalized by discharge Discharge Plan Discharge Patient Disposition: Home Clinical Impression: Sacral dysfunction Condition: Stable Prescriptions: New prednisone 20 mg tablet 20 mg PO DAILY 7 Days Qty: 7 0RF No Action hydrocodone-acetaminophen 5-325 mg tablet 1 tab PO Q6H PRN (Reason: pain) Qty: 14 0RF methocarbamol 750 mg tablet 750 mg PO Q6H PRN (Reason: spasms) Qty: 20 0RF naproxen [Naprosyn] 500 mg tablet 500 mg PO BID PRN (Reason: pain) Qty: 20 0RF Discharge Orders: Discharge ED (Routine); Ordered 07/03/24 Ordered By: Vincent Harp Referrals: Amarjit Price MD [Primary Care Provider] - Discharge Diet: Usual diet Discharge Activity: Increase activity as tolerated Patient Instructions: Sacroiliitis (ED) Activity Restrictions/Additional Instructions: Drink plenty of water and fluids. Follow-up with primary care in 3 days, Return to ER for worsening symptoms such as high fever, blood in stool, or uncontrolled pain. Thank you for choosing [facility] for your healthcare needs today. Please realize that you were seen in the emergency department and that we are providing you with an emergency medical screening exam and this may not be a complete and all exclusive of all testing and/or medical workup we may need to determine your element or severity of your illness. It is very important that you follow-up as instructed with your primary care provider or specialist for the additional evaluation and to discuss your medical treatment plan. You may return to the emergency department should you have concerns or if your condition changes or worsens in any way. Coding Level of Care Code ED Substation Maintenance Technician for Freida Kaplan
--- NOTE | 2024-07-03 20:21 | CTR_ITS ---
PROCEDURE INFORMATION: Exam: CT Lumbar Spine Without Contrast Exam date and time: 07/03/2024 9:07 PM Age: 44 years old Clinical indication: Patient HX: C/O persistent low back pain after two recent chiropractic treatments. ; Additional info: Peristent low back pain after treatment TECHNIQUE: Imaging protocol: Computed tomography of the lumbar spine without contrast. Radiation optimization: All CT scans at this facility use at least one of these dose optimization techniques: automated exposure control; mA and/or kV adjustment per patient size (includes targeted exams where dose is matched to clinical indication); or iterative reconstruction. COMPARISON: CT kidney stone [id number] 06/27/2024 2:28 PM RADIATION DOSE METRICS: Total DLP (mGy-cm): 353.24 FINDINGS: Bones/joints: No acute fracture. Normal alignment. No significant disc bulge or herniation. No severe spinal canal stenosis. No significant neural foraminal narrowing. Soft tissues: Unremarkable. CT/CT lumbar spine wo con* [id number] IMPRESSION: No acute findings.
[2024-07-03] MEDS: orphenadrine 30 mg/mL Inj 2 mL 60 MG IVP (20:36)
[2024-07-03] MEDS: dexamethasone 10 mg/mL INJ IVP (20:44)
[2024-07-03] MEDS: ketorolac 30 mg/mL INJ 15 MG IVP (20:45)
[2024-07-03 20:49] VITALS: BP 132/73; PULSE 63; RESP 16; O2SAT 96
[2024-07-03 20:50] LABS: Basophils % 0.1 %; Eosinophils # 0.2 10^3/uL (0.0-0.8); Eosinophils % 2.8 %; Hematocrit 38.4 % (36-47); Lymphocytes # 3.3 10^3/uL (0.8-4.8); Lymphocytes % 43.9 %; Mean Corpuscular HGB Conc 33.1 g/dL (30-55); Mean Corpuscular Hemoglobin 30.5 pg (27-33); Mean Corpuscular Volume 92.3 fl (85-98); Mean Platelet Volume 9.1 fL (7.4-10.4); Monocytes # 0.4 10^3/uL (0.2-0.9); Monocytes % 4.9 %; Neutrophils # 3.62 10^3/uL (1.8-7.7); Nucleated Red Blood Cells % 0 %; Platelet Count 352 10^3/cmm (157-399); Red Blood Count 4.16 10^6/uL (3.85-5.65); White Blood Count 7.54 10^3/uL (3.29-11.43)
[2024-07-03 21:06] LABS: Alanine Aminotransferase 22 U/L (0-33); Albumin Level 4.3 g/dL (3.5-5.2); Alkaline Phosphatase 77 U/L (35-105); Anion Gap 14.4 (5-19); Aspartate Amino Transferase 19 U/L (0-32); Blood Urea Nitrogen 15 mg/dL (6-20); Calcium 9.3 mg/dL (8.5-10.5); Carbon Dioxide 24 mmol/L (22-29); Chloride 104 mmol/L (98-107); Creatinine Clr Calc Pharmacy 114.3876; Erythrocyte Sedimentation Rate 10 mm/hr (0-15); Globulin 2.7 g/dL (1.3-4.6); Glomerular Filtration Rate 135.3 mL/min (90-130); Glucose 93 mg/dL (65-115); Lipase 29 U/L (13-60); Osmolality Calculated 287 mOsm/kg (285-295); Potassium 4.4 mmol/L (3.5-5.1); Sodium 138 mmol/L (136-145); Total Bilirubin 0.2 mg/dL (0.15-1.2)
[2024-07-03 21:30] LABS: Bilirubin Urine Negative (Negative); Blood Urine Negative (Negative); Glucose Urine UA Negative (Normal); Ketones Urine Negative (Negative); Leukocyte Esterase Urine Trace (Negative); Nitrate Urine Negative (Negative); Protein Urine Negative (Negative); Specific Gravity, Urine 1.012 (1.005-1.030); Urine Appearance Clear (CLEAR); Urine Color Yellow (Yellow); Urobilinogen Urine 0.2 mg/dL (Negative); pH Urine 6.5 (5-7)
[2024-07-03 21:35] LABS: Add Urine Microscopic? YES; Bacteria Urine None Seen /hpf; Hyaline Casts Urine 0-4 /lpf; RBC Urine 0-2 /hpf (0-2); Squamous Epithelial Cell Urine 0-5 /hpf (0-5)
[2024-07-03 21:58] VITALS: RESP 17; O2SAT 98
[2024-07-03] MEDS: HYDROmorphone 1 mg/mL INJ 1 mL 0.5 MG IVP (21:58)
[2024-07-03 22:00] VITALS: PULSE 66; O2SAT 96
[2024-07-03 22:09] VITALS: BP 129/81; PULSE 73; O2SAT 98
== END 2024-07-03 22:11 | disposition home or self-care (01) ==
PROVIDERS: Emergency Provider Nurse Practitioner Family; PCP Family Medicine
DX: M53.3 Sacrococcygeal disorders, not elsewhere classified (principal)
CPT/HCPCS: 36415; 72131; 80053; 81001; 83690; 85025; 85651; 86140; 96374; 96375; 99285; J1100; J1171; J1885; J2360